=== PATIENT | female | born 1945 | race Caucasian/White ===

== ENCOUNTER 2023-01-28 02:50 | Emergency (ER) | payer BC, MEDICARE ==
[2023-01-28] MEDS ORDERED: Aspirin 81 MG Tab.Chew PO ONE (02:58)
[2023-01-28 03:19] LABS: BASOPHILS PERCENT AUTO 0.2 % (0.1-1.3); EOSINOPHILS ABSOLUTE AUTO 0.05 K/uL (0.00-0.40); EOSINOPHILS PERCENT AUTO 0.4 % (0.0-5.4); HEMATOCRIT 37.5 % (34.3-46.0); HEMOGLOBIN 12.4 g/dL (11.2-15.5); IMMATURE GRAN ABSOLUTE AUTO 0.09 K/uL (0.00-0.23); IMMATURE GRAN PERCENT AUTO 0.7 % (0.0-0.7); LYMPHOCYTES ABSOLUTE AUTO 2.24 K/uL (0.8-3.3); LYMPHOCYTES PERCENT AUTO 18.5 % (11.4-47.7); MEAN CORPUSCULAR HEMOGLOBIN 30.7 pg (31.6-35.5); MEAN CORPUSCULAR HGB CONC 33.1 g/dL (31.6-35.5); MEAN CORPUSCULAR VOLUME 92.8 fL (81.4-99.0); MONOCYTES ABSOLUTE AUTO 1.03 K/uL (0.20-0.90); MONOCYTES PERCENT AUTO 8.5 % (3.3-12.6); NEUTROPHILS ABSOLUTE AUTO 8.66 K/uL (1.0-7.6); NEUTROPHILS PERCENT AUTO 71.7 % (40.0-78.1); PLATELET COUNT,PLT 209 K/uL (130-375); RED BLOOD CELL COUNT 4.04 M/uL (3.77-5.24); WHITE BLOOD CELL COUNT,WBC 12.1 K/uL (3.2-11.0)
[2023-01-28 03:20] LABS: BASOPHILS ABSOLUTE AUTO 0.02 K/uL (0.00-0.10)
[2023-01-28 03:32] LABS: A/G RATIO 0.9 (1.2-2.2); ALANINE AMINOTRANSFERASE,ALT 20 U/L (12-78); ALBUMIN 3.4 g/dL (3.4-5.0); ALKALINE PHOSPHATASE 97 U/L (46-116); ASPARTATE AMNIOTRANSFERASE,AST 21 U/L (15-37); BILIRUBIN TOTAL 0.5 mg/dL (0.2-1.0); BLOOD UREA NITROGEN,BUN 23 mg/dL (7-18); CALCIUM 9.3 mg/dL (8.5-10.1); CARBON DIOXIDE,CO2 26 mmol/L (21-32); CHLORIDE,CL 97 mmol/L (100-108); CREATININE 1.2 mg/dL (0.6-1.0); ESTIMATED GFR 47 mL/min (>60); GLUCOSE RANDOM 191 mg/dL (74-106); POTASSIUM,K 4.4 mmol/L (3.6-5.2); SODIUM,NA 134 mmol/L (140-148)
[2023-01-28 03:33] LABS: ANION GAP 15.4 mmol/L (5.0-14.0)
[2023-01-28] MEDS ORDERED: Diltiazem IR 30 MG Tab PO ONE (04:52)
[2023-01-28] MEDS ORDERED: Diltiazem 25 MG/5 ML SDV IVPUSH ONE (05:26)
[2023-01-28] MEDS ORDERED: Diltiazem 100 MG in Sodium Chloride 0.9% 100 ML IV SCH (05:30)
[2023-01-28 06:10] LABS: APPEARANCE,URINE CLEAR (CLEAR); BILIRUBIN,URINE NEGATIVE (NEGATIVE); COLOR,URINE YELLOW (YELLOW); GLUCOSE,URINE NEGATIVE (NEGATIVE); KETONES,URINE NEGATIVE (NEGATIVE); LEUKOCYTE ESTERASE,URINE MODERATE (NEGATIVE); NITRITE,URINE NEGATIVE (NEGATIVE); OCCULT BLOOD,URINE NEGATIVE (NEGATIVE); PROTEIN,URINE NEGATIVE (NEGATIVE); UROBILINOGEN,URINE 0.2 EU/dL (0.2-1.0)
[2023-01-28 06:18] LABS: AMORPHOUS SEDIMENT,URINE FEW; BACTERIA,URINE MODERATE; EPITHELIAL CELLS,URINE FEW; MUCUS,URINE NOT SEEN; RBC,URINE 0-5 (0-5)
== END 2023-01-28 09:35 | disposition home or self-care (01) ==
LOC: EDBD 02:50 → JP.ED 02:50
DX: I48.20 Chronic atrial fibrillation, unspecified (principal); Z88.6 Allergy status to analgesic agent; Z88.8 Allergy status to other drugs, medicaments and biological substances
CPT/HCPCS: 36415; 71045; 80053; 81001; 84484; 85025; 93005; 96374; 99285; A9270; J3490